=== PATIENT | male | born 1965 | race Two or more races ===

== ENCOUNTER 2023-08-07 08:05 | Day surgery (SDC) | payer OTHER | END 2023-08-07 12:15 | disposition home or self-care (01) | LOC: AMB-ENDOS 08:05 | PROVIDERS: ATTEND Internal Medicine Gastroenterology | DX: K57.30 Diverticulosis of large intestine without perforation or abscess without bleeding (principal); Z12.11 Encounter for screening for malignant neoplasm of colon; Z20.822 Contact with and (suspected) exposure to COVID-19 ==